=== PATIENT | female | born 1970 | race Caucasian/White ===

== ENCOUNTER → 2017-11-18 | Outpatient (CLI) | payer BC ==
[~2017-11-18] MED LIST: CETI10 PO; MONT10T PO
[2017-11-18 13:19] LABS: BASOPHILS ABSOLUTE AUTO 0.04 K/mm3 (0.00-0.23); BASOPHILS PERCENT AUTO 1 % (0-2); EOSINOPHILS ABSOLUTE AUTO 0.24 K/mm3 (0.00-0.68); EOSINOPHILS PERCENT AUTO 4 % (0-6); Hematocrit 40.7 % (33.0-51.0); Hemoglobin 13.6 g/dL (11.5-16.0); IMMATURE GRAN ABSOLUTE AUTO 0.01 K/mm3 (0.00-0.10); IMMATURE GRAN PERCENT AUTO 0 % (0-1); LYMPHOCYTES ABSOLUTE AUTO 1.64 K/mm3 (0.84-5.20); LYMPHOCYTES PERCENT AUTO 26 % (21-46); MONOCYTES PERCENT AUTO 10 % (4-13); Mean Corpuscular HGB 28.6 pg (26.0-34.0); Mean Corpuscular HGB Conc 33.4 g/dL (31.5-36.5); Mean Corpuscular Volume 86 fL (80-100); Mean Platelet Volume 10.4 fL (9.1-12.4); NEUTROPHILS ABSOLUTE AUTO 3.77 K/mm3 (1.96-9.15); NEUTROPHILS PERCENT AUTO 60 % (41-73); Platelet Count 342 K/mm3 (150-400); RDW Coefficient Variation 12.6 % (11.7-14.2); RDW Standard Deviation 39.7 fL (35.1-46.3); Red Blood Cell Count 4.75 M/mm3 (3.80-5.20)
[2017-11-18 14:06] LABS: Alanine Aminotransfer (ALT/SGP 33 U/L (12-78); Albumin, Blood 3.3 g/dL (3.4-5.0); Albumin/Globulin Ratio 0.8 (0.8-1.8); Alk Phos 65 U/L (50-136); Anion Gap 8 mmol/L (6-16); Aspartate Aminotrans (AST/SGOT 27 U/L (12-37); Bilirubin, Total 0.3 mg/dL (0.1-1.0); Blood Urea Nitrogen 9 mg/dL (8-24); Bun/Creatinine Ratio 13.2 (12.0-20.0); CHOL/HDL RATIO 3.5; CO2, Blood 26 mmol/L (21-32); Calcium, Blood 8.7 mg/dL (8.5-10.1); Chloride, Blood 103 mmol/L (98-108); Cholesterol 200 mg/dL (50-200); Creatinine, Blood 0.68 mg/dL (0.40-1.00); Globulin, Blood 4.1 g/dL (2.2-4.0); Glomerular Filtration Rate >60 (60-); Glucose, Blood 179 mg/dL (70-99); HDL Cholesterol 57 mg/dL (>39); LDL/HDL RATIO 1.9; Low Density Lipoprotein Chol 110 mg/dL (0-110); Potassium, Blood 4.2 mmol/L (3.5-5.5); Sodium, Blood 137 mmol/L (136-145); Total Protein, Blood 7.4 g/dL (6.4-8.2); Triglycerides 165 mg/dL (30-160); Very Low Density Lipoprot Chol 33 mg/dL (6-32)
== END | disposition home or self-care (01) ==
LOC: LAB 09:56
PROVIDERS: Hospitalist
DX: R03.0 Elevated blood-pressure reading, without diagnosis of hypertension (principal); E11.65 Type 2 diabetes mellitus with hyperglycemia
CPT/HCPCS: 80053; 80061; 82043; 83036; 84439; 84443; 85025

== ENCOUNTER → 2020-11-24 | Outpatient (CLI) | payer BC ==
[~2020-11-24] MED LIST changes: +ALBU90OI; +METF500; +MULVITA
== END | disposition home or self-care (01) ==
LOC: LAB 13:24 → LAB SHORT 13:24
DX: E11.65 Type 2 diabetes mellitus with hyperglycemia (principal)
CPT/HCPCS: 82043

== ENCOUNTER 2021-04-13 08:51 | Day surgery (SDC) | payer BC | END 2021-04-13 22:55 | disposition home or self-care (01) | LOC: MOI US 08:51 → MOI MAM 09:30 → MOI US 22:55 | DX: N60.31 Fibrosclerosis of right breast (principal); N64.89 Other specified disorders of breast | CPT/HCPCS: 19083; 77065; 88305; A4648 ==

== ENCOUNTER 2021-04-29 08:32 | Day surgery (SDC) | payer BC ==
[2021-05-01 09:34] LABS: Performing Lab SYMBIODX; Test Name HER2 FISH
== END 2021-04-29 23:48 | disposition home or self-care (01) ==
LOC: MOI MAM 08:32
PROVIDERS: Pathology Anatomic Pathology & Clinical Pathology
DX: D05.11 Intraductal carcinoma in situ of right breast (principal)
CPT/HCPCS: 19081; 88305; 88341; 88342; 88360; 88374; A4648

== ENCOUNTER 2021-07-01 08:30 | Day surgery (SDC) | payer BC ==
[~2021-07-01 08:30] MED LIST changes: +ELDERBERRY PO; +MULVITA PO; +ZYRTEC10 M2 PO
== END 2021-07-01 22:36 | disposition home or self-care (01) ==
LOC: MOI MAM 08:30
DX: C50.811 Malignant neoplasm of overlapping sites of right female breast (principal)
CPT/HCPCS: 19281; A4648

== ENCOUNTER 2021-07-06 09:03 | Day surgery (SDC) | payer BC ==
[~2021-07-06] VITALS: Ht 167.6 cm; Wt 103.8 kg
--- NOTE | 2021-07-06 12:21 | NUR ---
07/06/21 1221 Aury Rascon 1219 PATHOLOGY CALLED, STATED LYMPH NODE IS NEGATIVE FOR CARCINOMA. AWARE/
== END 2021-07-06 14:01 | disposition home or self-care (01) ==
LOC: ORSCSDS 09:03 → NM 10:00 → ORSCSDS 14:01
PROVIDERS: Surgery
PROC: 0HBT0ZZ Excision of Right Breast, Open Approach (ICD-10-PCS; principal; 2021-07-06 11:00)
PROC: 0HHT0NZ Insertion of Tissue Expander into Right Breast, Open Approach (ICD-10-PCS; principal; 2021-07-06 11:00)
PROC: 07B50ZX Excision of Right Axillary Lymphatic, Open Approach, Diagnostic (ICD-10-PCS; principal; 2021-07-06 11:00)
DX: C50.811 Malignant neoplasm of overlapping sites of right female breast (principal); J45.909 Unspecified asthma, uncomplicated; E11.9 Type 2 diabetes mellitus without complications; E66.9 Obesity, unspecified; Z68.36 Body mass index [BMI] 36.0-36.9, adult; Z79.84 Long term (current) use of oral hypoglycemic drugs; Z79.899 Other long term (current) drug therapy
CPT/HCPCS: 38792; 76098; 82947; 88307; 88342; A9270; A9520; J0690; J2250; J2370; J2405; J2704; J2710; J3010; J7120; Q9968

== ENCOUNTER 2021-07-09 10:31 | Day surgery (SDC) | payer BC ==
[~2021-07-09] VITALS: Ht 167.6 cm; Wt 103.2 kg
--- NOTE | 2021-07-09 11:16 | NUR ---
Ambulatory in Day Surgery Patient States Post-Procedure ride home has been arranged. Lungs clear T/O to Auscultation.Lungs clear T/O to Auscultation.
[2021-07-09] MEDS ORDERED: ALBU90OI INH (11:30)
--- NOTE | 2021-07-09 12:25 | NUR ---
07/09/21 1225 Shante Corbett NO PRE-OP ANTIBIOTICS NEEDED
--- NOTE | 2021-07-09 13:13 | NUR ---
Patient up to Ambulate independently. Gait steady. Discharge instructions reviewed with patient. Patient verbalizes understanding. Copy given to patient to take home. Patient States Post-Procedure ride home has been arranged. Discharged via wheelchair to private car for ride home. TUBE OF BACITRACIN SENT WITH PT, DEVICE/TOOL SENT WITH PT TO TAKE TO [facility] APPOINTMENT TOMORROW AT 0800
== END 2021-07-09 23:26 | disposition home or self-care (01) ==
LOC: ORSCMMR 10:31 → ORSCSDS 10:31 → ORSCMMR 10:32 → ORD 12:00 → ORSCMMR 12:00 → ORSCSDS 12:00 → ORSCMMR 23:26 → ORSCSDS 23:26
PROVIDERS: Surgery
PROC: 0WH803Z Insertion of Infusion Device into Chest Wall, Open Approach (ICD-10-PCS; principal; 2021-07-09 12:00)
DX: C50.811 Malignant neoplasm of overlapping sites of right female breast (principal); E11.9 Type 2 diabetes mellitus without complications; E66.9 Obesity, unspecified; Z68.36 Body mass index [BMI] 36.0-36.9, adult; J45.909 Unspecified asthma, uncomplicated
CPT/HCPCS: 82947; A9270; C1728; J2250; J2704; J7120

== ENCOUNTER 2021-09-04 05:54 | Day surgery (SDC) | payer BC ==
[~2021-09-04] VITALS: Ht 167.6 cm; Wt 104.0 kg
[~2021-09-04 05:54] MED LIST changes: +ALBU90OI INH; +METF500 PO
[2021-09-04] MEDS ORDERED: ERGO50000 PO (06:24)
[2021-09-04] MEDS ORDERED: CALCIUM 600 +1 EA11 PO (06:25)
[2021-09-04] MEDS ORDERED: VITAMIN D325 MC3 PO (06:25)
--- NOTE | 2021-09-04 08:55 | NUR ---
KASSI NAVARRETE PER [facility] RESPIRATORY THERAPIST.
--- NOTE | 2021-09-04 09:14 | NUR ---
TOLERATING SIPS OF DIET SODA AND CRACKERS. NO C/O. C/O 10 ACHING PAIN TO LEFT LEFT AREA WHERE STERI STRIP LOCATED. WILL GIVE PO ANALGESIC.
--- NOTE | 2021-09-04 09:27 | NUR ---
FOLDED 4X4 GAUZE COVED WITH CLEAR OCCLUSIVE DRSG TO LEFT CHEST WALL. SINGLE STERI STRIP PROXIMAL TO GAUZE DRSG AT BASE OF LEFT NECK INTACT, CLEAN AND DRY. SCANT AMOUNT DRY RED DRAINAGE NOTED TO STERI STRIP, NO OTHER DRAINAGE NOTED. NO BRUISING OR SWELLING NOTED.
--- NOTE | 2021-09-04 09:41 | NUR ---
VSS. UP TO DRESS. GAIT STEADY. PATIENT'S DAUGHTER, CHRISTOPHER, TO DRIVE HER HOME.
== END 2021-09-04 09:49 | disposition home or self-care (01) ==
LOC: ORSCMMR 05:54 → ORD 07:30 → ORSCMMR 07:30
PROVIDERS: Surgery
PROC: 0JH60WZ Insertion of Totally Implantable Vascular Access Device into Chest Subcutaneous Tissue and Fascia, Open Approach (ICD-10-PCS; principal; 2021-09-04 07:30)
DX: C50.311 Malignant neoplasm of lower-inner quadrant of right female breast (principal); E11.9 Type 2 diabetes mellitus without complications; J45.909 Unspecified asthma, uncomplicated
CPT/HCPCS: 77001; 82947; A9270; C1788; J0690; J1100; J1642; J2250; J2405; J2704; J3010; J7120

== ENCOUNTER 2021-09-22 15:07 | Day surgery (SDC) | payer BC ==
[~2021-09-22 15:07] MED LIST changes: +CALCIUM 600 +1 EA11 PO; +ERGO50000 PO; +VITAMIN D325 MC3 PO
== END 2021-09-22 22:50 | disposition home or self-care (01) ==
LOC: RAD 15:07
DX: C50.311 Malignant neoplasm of lower-inner quadrant of right female breast (principal)
CPT/HCPCS: 36598

== ENCOUNTER 2021-09-23 14:11 | Day surgery (SDC) | payer BC ==
--- NOTE | 2021-09-23 16:23 | NUR ---
PTS PORT WILL NOT PULL BLOOD AFTER CATHFLO BEING INSTILLED FOR 45 MIN. TAPED UP BOTH PORTS AND PT TO COME BACK IN THE MORNING AT 0830.INSTRUCTED PT IF SHE SHOULD GO TO ER OR ANY OTHER FACILITY TO ALERT THEM SHE HAS CATHFLO.
== END 2021-09-23 15:42 | disposition home or self-care (01) ==
LOC: ATC 14:11
DX: C50.311 Malignant neoplasm of lower-inner quadrant of right female breast (principal)
CPT/HCPCS: 36593; J2997

== ENCOUNTER 2021-09-24 08:24 | Day surgery (SDC) | payer BC | END 2021-09-24 09:15 | disposition home or self-care (01) | LOC: ATC 08:24 | DX: Z45.2 Encounter for adjustment and management of vascular access device (principal); C50.311 Malignant neoplasm of lower-inner quadrant of right female breast | CPT/HCPCS: 96523; J1642 ==

== ENCOUNTER 2021-10-10 08:35 | Day surgery (SDC) | payer BC | END 2021-10-10 10:03 | disposition home or self-care (01) | LOC: ATC 08:35 | DX: C50.911 Malignant neoplasm of unspecified site of right female breast (principal); Z90.11 Acquired absence of right breast and nipple; E11.9 Type 2 diabetes mellitus without complications; J45.909 Unspecified asthma, uncomplicated | CPT/HCPCS: 96360; J1642; J7030 ==

== ENCOUNTER 2021-10-24 08:59 | Day surgery (SDC) | payer BC | END 2021-10-24 10:45 | disposition home or self-care (01) | LOC: ATC 08:59 | DX: E86.0 Dehydration (principal); C50.311 Malignant neoplasm of lower-inner quadrant of right female breast; E11.9 Type 2 diabetes mellitus without complications; J45.909 Unspecified asthma, uncomplicated; Z79.899 Other long term (current) drug therapy | CPT/HCPCS: J1642; J7030 ==

== ENCOUNTER → 2022-02-19 | Outpatient (CLI) | payer BC ==
[2022-02-19 15:16] LABS: BASOPHILS ABSOLUTE AUTO 0.06 K/mm3 (0.00-0.23); BASOPHILS PERCENT AUTO 1 % (0-2); EOSINOPHILS ABSOLUTE AUTO 0.27 K/mm3 (0.00-0.68); EOSINOPHILS PERCENT AUTO 6 % (0-6); Hematocrit 42.8 % (33.0-51.0); Hemoglobin 13.9 g/dL (11.5-16.0); IMMATURE GRAN ABSOLUTE AUTO 0.01 K/mm3 (0.00-0.10); IMMATURE GRAN PERCENT AUTO 0 % (0-1); LYMPHOCYTES ABSOLUTE AUTO 0.89 K/mm3 (0.84-5.20); LYMPHOCYTES PERCENT AUTO 19 % (21-46); MONOCYTES ABSOLUTE AUTO 0.73 K/mm3 (0.16-1.47); MONOCYTES PERCENT AUTO 16 % (4-13); Mean Corpuscular HGB 31.7 pg (26.0-34.0); Mean Corpuscular HGB Conc 32.5 g/dL (31.5-36.5); Mean Corpuscular Volume 98 fL (80-100); NEUTROPHILS ABSOLUTE AUTO 2.73 K/mm3 (1.96-9.15); NEUTROPHILS PERCENT AUTO 58 % (41-73); Platelet Count 288 K/mm3 (150-400); RDW Coefficient Variation 12.6 % (11.7-14.2); RDW Standard Deviation 45.3 fL (35.1-46.3); Red Blood Cell Count 4.39 M/mm3 (3.80-5.20); White Blood Cell Count 4.69 K/mm3 (4.00-11.30)
== END ==
LOC: LAB SHORT 13:15
PROVIDERS: Obstetrics & Gynecology
DX: Z01.818 Encounter for other preprocedural examination (principal)
CPT/HCPCS: 85025

== ENCOUNTER 2022-02-24 09:11 | Day surgery (SDC) | payer BC ==
[~2022-02-24] VITALS: Ht 167.6 cm; Wt 99.9 kg
--- NOTE | 2022-02-24 10:09 | NUR ---
History, Chart, Medications and Allergies reviewed before start of procedure. Patient confirms NPO status and agrees with scheduled surgery.PT AGREEABLE FOR 1ST YEAR DIRECTOR CHILD ABUSE THERAPY TO ATTEMPT IV PLACEMENT. STUDENT TRIED TWICE, UNSUCCESSFUL.
--- NOTE | 2022-02-24 11:35 | NUR ---
02/24/22 1135 Shante Corbett NO INTRAOPERATIVE ANTIBIOTICS ORDERED PER SURGEON.
--- NOTE | 2022-02-24 13:50 | NUR ---
PT'S DAUGHTER HERE CHRISTOPHER. Patient up to Ambulate independently. Gait steady. Discharge instructions reviewed with patient. Patient verbalizes understanding. Copy given to patient to take home. Patient States Post-Procedure ride home has been arranged. Discharged via wheelchair to private car for ride home.
== END 2022-02-24 13:50 | disposition home or self-care (01) ==
LOC: ORSCMMR 09:11 → ORD 10:30 → ORSCMMR 13:50
PROVIDERS: Obstetrics & Gynecology
PROC: 0UT24ZZ Resection of Bilateral Ovaries, Percutaneous Endoscopic Approach (ICD-10-PCS; principal; 2022-02-24 10:30)
PROC: 0DNU4ZZ Release Omentum, Percutaneous Endoscopic Approach (ICD-10-PCS; principal; 2022-02-24 10:30)
PROC: 0UT74ZZ Resection of Bilateral Fallopian Tubes, Percutaneous Endoscopic Approach (ICD-10-PCS; principal; 2022-02-24 10:30)
DX: C50.919 Malignant neoplasm of unspecified site of unspecified female breast (principal); N83.292 Other ovarian cyst, left side; N83.291 Other ovarian cyst, right side; N73.6 Female pelvic peritoneal adhesions (postinfective); J45.909 Unspecified asthma, uncomplicated; E66.9 Obesity, unspecified; Z68.35 Body mass index [BMI] 35.0-35.9, adult; Z79.899 Other long term (current) drug therapy
CPT/HCPCS: 88305; A9270; J1100; J1885; J2250; J2370; J2405; J2704; J3010; J7120

== ENCOUNTER → 2023-08-23 | Outpatient (CLI) | payer BC | LOC: LAB SHORT 18:24 → LAB 18:24 | PROVIDERS: Hospitalist | DX: Z12.4 Encounter for screening for malignant neoplasm of cervix (principal) | CPT/HCPCS: G0145 ==

== ENCOUNTER → 2024-09-10 | Outpatient (CLI) | payer BC ==
[~2024-09-10] MED LIST changes: +ANASTROZOLE1 M7; +GLIM2
[2024-09-10 15:24] LABS: Anion Gap 8 mmol/L (3-11); Blood Urea Nitrogen 15 mg/dL (8-24); Bun/Creatinine Ratio 21.2 (12.0-20.0); CHOL/HDL RATIO 3.1; CO2, Blood 26 mmol/L (21-32); Calcium, Blood 9.1 mg/dL (8.5-10.1); Chloride, Blood 109 mmol/L (98-108); Cholesterol 206 mg/dL (50-200); Creatinine, Blood 0.71 mg/dL (0.40-1.00); Glomerular Filtration Rate 100 (60-); Glucose, Blood 164 mg/dL (70-99); HDL Cholesterol 67 mg/dL (>39); LDL/HDL RATIO 1.5; Low Density Lipoprotein Chol 100 mg/dL (0-110); Potassium, Blood 4.4 mmol/L (3.5-5.5); Sodium, Blood 139 mmol/L (136-145); Triglycerides 194 mg/dL (30-160); Very Low Density Lipoprot Chol 38 mg/dL (6-32)
== END ==
LOC: LAB 13:51 → LAB SHORT 13:51
PROVIDERS: Hospitalist
DX: E11.69 Type 2 diabetes mellitus with other specified complication (principal); E78.00 Pure hypercholesterolemia, unspecified
CPT/HCPCS: 80048; 80061; 83036

== ENCOUNTER → 2024-09-11 | Outpatient (CLI) | payer BC ==
[2024-09-11 20:15] LABS: Microalb/Creat Ratio UR, Rand Unable to Calculate mg/g (0.000-30.000); Microalbumin, Random Urine <5.000 mg/L (0.000-20.000)
== END ==
LOC: LAB SHORT 17:39 → LAB 17:39
PROVIDERS: Hospitalist
DX: E11.69 Type 2 diabetes mellitus with other specified complication (principal)
CPT/HCPCS: 82043; 82570